=== PATIENT | male | born 1950 | race Caucasian/White ===

== ENCOUNTER 2019-08-04 16:18 | Inpatient (IN) | payer MEDICARE, OTHER ==
[2019-08-04] MEDS ORDERED: Ondansetron PF 4 MG/2 ML Vial IVP PRN (19:41)
[2019-08-04] MEDS ORDERED: Ondansetron ODT 4 MG TAB SL PRN (19:41)
[2019-08-04] MEDS ORDERED: Sodium Chloride 0.9% 1,000 ML IV SCH (19:41)
[2019-08-04] MEDS ORDERED: Acetaminophen 325 MG TAB PO PRN (20:19)
[2019-08-04 20:25] VITALS: BMI 14.1
--- NOTE | 2019-08-04 20:37 | PDOC.FPRHP ---
- History of Present Illness Chief Complaint: [facility]sis at [facility] History of Present Illness: PCP: Ashwin Amadeo Joyce is a 69 year old M with a PMH of Dementia, GERD, CKD who was transferred to [facility] ED from [place] ED after episode of hemoptysis in the [facility]. Pt is a poor historian. History provided by [facility] staff and ERMD. [facility] staff states that patient was found in his room with dark red blood on his sheet and he was spitting up clotted blood over the course of about an hour. Vitals were stable at the intermediate and he was only complaining of epigastric pain. He had not been having any other symptoms of fever, shortness of breath, n/v, diarrhea, dysuria, chest pain. Nursing staff states he has occasional cough at baseline and he has not had any increased cough of late. Denies any cased of COVID at [facility] and patient has had no exposures or travel. At the [place] ED, patient had CT abdomen that showed stable R hydronephrosis and hydroureter, esophageal wall thickening and stool retention in rectum and colon with fat stranding. CT chest showed small pleural effusions with adjacent atelectasis vs infiltrate. CXR showed bibasilar linear parenchymal changes suggestive of pneumonia vs pneumonitis. In the [place] ED, he was given Cefepime, Protonix, Zofran and 1 L NS. COVID test was performed at [place] [facility] due to pt living in [facility] and concern for pneumonia. ED Course: In [facility] ED, he had no episodes of bleeding. He was given Levaquin IV. - Allergies/Adverse Reactions Allergies Allergy/AdvReac Type Severity Reaction Status Date / Time aspirin Allergy Verified 08/04/19 20:26 cortisone Allergy Verified 08/04/19 20:26 hydrochlorothiazide Allergy Verified 08/04/19 20:26 reserpine Allergy Verified 08/04/19 20:26 - Home Medications Medication Instructions Recorded Confirmed Type Acetaminophen [Acetaminophen Extra 500 - 1,000 mg PO Q4HR PRN 11/04/13 08/04/19 History Strength] Benztropine Mesylate [Cogentin] 0.5 mg PO BID 11/04/13 08/04/19 History Divalproex Sodium [Depakote ER] 500 mg PO HS 11/04/13 08/04/19 History Docusate [Colace] 100 mg PO DAILY PRN 11/04/13 08/04/19 History Ferrous Sulfate 325 mg PO DAILY 11/04/13 08/04/19 History Loperamide HCl [Loperamide] 2 mg PO PRN PRN 11/04/13 08/04/19 History Mag Hydrox/Al Hydrox/Simeth 30 ml PO Q4HR PRN 11/04/13 08/04/19 History [Maalox Plus] Magnesium Hydroxide [Milk Of 30 ml PO Q4HR PRN 11/04/13 08/04/19 History Magnesium] Calcium Citrate/Vitamin D3 1 tablet PO DAILY 01/05/15 08/04/19 History [Calcitrate + Vitamin D Caplet] Famotidine 20 mg PO HS 02/17/15 08/04/19 History Lorazepam [Ativan] 1 mg PO BID 02/17/15 08/04/19 History Polyethylene Glycol 3350 [Miralax] 17 gm PO DAILY PRN 08/04/19 08/04/19 History hydrALAZINE [Apresoline] 25 mg PO BID 08/04/19 08/04/19 History - History PMHx: GERD, hx of frequent UTIs, CKD, HTN, Anemia, Dementia, Schizoaffective disorder PSHx: Right shoulder surgery FHx: unknown Social: lives at [facility], does not smoke, drink alcohol or do drugs - Review of Systems ROS unobtainable: due to mental status (ROS provided by nursing staff) General: denies: fever/chills ENT: denies: nasal congestion Respiratory: reports: cough. denies: shortness of breath Cardiovascular: denies: chest pain Gastrointestinal: reports: abdominal pain. denies: nausea, vomiting, diarrhea Skin: denies: rashes - Vital signs BP: 130/86 HR: 95 RR: 18 Tmax: 99.4 Pox: 94% on RA Wt: 40 kg - Physical Exam Constitutional: NAD, awake, alert and oriented HEENT: normocephalic and atraumatic, PERRLA, EOMI, MMM Neck: supple, no LAD, no JVD Heart: RRR, normal S1/S2, no murmurs/rubs/gallops Lungs: CTAB, no respiratory distress, no rales/rhonchi -Lungs: decreased air movement at bases Abdomen: soft, non-tender -Abdomen: hypoactive BSs Musculoskeletal: normal structure, normal tone Neurological: no focal deficit Skin: no rash/lesions, capillary refill <2 seconds Psychiatric: other (A&O X1, poor memory) FMR H&P: Results - Labs Result Diagrams: 08/05/19 12:05 08/05/19 12:05 - EKG Interpretation EKG: From [place] ED, showed left ant fascicular block and q waves in V4, V5, V6 FMR H&P: A/P - Problem List (1) Hemoptysis Current Visit: Yes Status: Acute Code(s): R04.2 - HEMOPTYSIS (2) Pneumonia Current Visit: Yes Status: Acute Code(s): J18.9 - PNEUMONIA, UNSPECIFIED ORGANISM (3) UTI (urinary tract infection) Current Visit: Yes Status: Acute (4) JONO (acute kidney injury) Current Visit: Yes Status: Acute Code(s): N17.9 - ACUTE KIDNEY FAILURE, UNSPECIFIED (5) Hyperkalemia Current Visit: Yes Status: Acute Code(s): E87.5 - HYPERKALEMIA (6) CKD (chronic kidney disease), stage IV Current Visit: No Status: Chronic Code(s): N18.4 - CHRONIC KIDNEY DISEASE, STAGE 4 (SEVERE) (7) Hydronephrosis, right Current Visit: No Status: Chronic Code(s): N13.30 - UNSPECIFIED HYDRONEPHROSIS - Plan Amadeo Joyce 69 year old M with PMH of GERD, CKD, freq UTIs, resident of [facility] 1) Hemoptysis - history is unclear if he was coughing up blood vs throwing/spitting up blood - atelectasis vs infiltrate seen on CT chest - CT abd showed esophageal wall thickening and stool retention with fat stranding - Hg normal, improved from previous - CTA not performed due to JONO on CKD - ordered V/Q scan - COVID test pending due to pneumonia and resident of [facility] - unclear if bleed is GI vs pulm, will initiate anticoagulation if V/Q scan is suggestive of PE - holding anticoagulation until that time 2) Pneumonia - stable from respiratory standpoint, no tachypnea or hypoxia - continue levaquin - s/p cefepime and levaquin from EDs 3) JONO on CKD - baseline Cr in low 2s - Cr of 3.78 today - checking Ur Na and Cr to calc a FENa - s/p 1 L NS - continue LR @ 100 ml/hr - stable hydronephrosis and hydroureter on CT abd 4) Hyperkalemia-mild - K 5.3 - no EKG changes - will give IVFs and repeat 5) UTI - UA showed +nitrite, Large LE, and 1+ olivia - hx of freq UTIs and neurogenic bladder - Urine cx collected on admission - continue levaquin 6) Dementia - at baseline - reorient as needed 7) Hydronephrosis/Hydroureter - stable, unchanged from previous - monitor kidney function and urine output CODE STATUS: DNAR, OOH DNR at NH, pt A&OX1 PCP: Ashwin Addendum - Attending - Attending Attestation Date/Time: 08/05/192006 I personally evaluated the patient and discussed the management with Dr. Apodaca on 08/03. I agree with the History, Examination, Assessment and Plan documented above with any addition or exceptions noted below. Unable to complete ROS or PMH other than what was given to us and on chart. He is fixated on getting a Dr. Judge and has tangential or nonsensical replies to questions. On exam he is cachectic appearing with yellow vomitus on his blanket. Otherwise unremarkable exam.
[2019-08-04] MEDS ORDERED: Cefepime 2 GM in Sodium Chloride 0.9% 100 ML IVPB SCH (21:00)
[2019-08-04] MEDS: Senokot S 8.6-50 MG TAB PO SCH ×2 (21:51→22:55)
[2019-08-04] MEDS: Polyethylene Glycol 3350 17 GM Packet PO SCH ×2 (21:51→22:54)
[2019-08-04] MEDS: Lactated Ringer's 1,000 ML IV SCH (21:51)
[2019-08-04 23:27] LABS: Legionella Urinary Ag Negative (Negative)
[2019-08-04 23:28] LABS: Strep pneumo Urine Ag NEGATIVE (NEGATIVE)
[2019-08-04 23:44] LABS: Creatinine, Urine 50.3 mg/dL (63-166)
[2019-08-05] MEDS: Lactated Ringer's 1,000 ML IV SCH ×3 (06:06→23:38)
[2019-08-05 06:39] LABS: #Lymphocytes 0.5 thou/uL (1.20-3.40); #Monocytes 0.9 thou/uL (0.11-0.59); #Neutrophils 4.7 thou/uL (1.40-6.50); %Basophils 0.3 % (0.0-1.0); %Eosinophils 0.4 % (0.0-10.0); %Lymphocytes 8.2 % (21.0-51.0); %Monocytes 14.6 % (0.0-10.0); %Neutrophils 76.6 % (42.0-75.0); Hemoglobin 10.8 g/dL (14.0-18.0); Mean Corpuscular HGB CONC 33.2 g/dL (32.0-36.0); Mean Corpuscular Hemoglobin 32.9 pg (27.0-31.0); Mean Corpuscular Volume 99.1 fL (78.0-98.0); Mean Platelet Volume 7.7 fL (7.4-10.4); Platelet Count 141 thou/uL (130-400); RBC Distribution Width 13.1 % (11.5-14.5); Red Blood Cell (RBC) Count 3.28 mill/uL (4.70-6.10); White Blood Cell (WBC) Count 6.2 thou/uL (4.8-10.8)
--- NOTE | 2019-08-05 06:45 | PDOC.FM ---
Addendum entered and electronically signed by Elizabeth Guo MD 08/05/19 09:34 : For sterocoral colitis - patient given bowel regimen and has had BMs. Will disimpact patient later to make sure there is no stool ball present. Original Note: - Subjective Subjective: One episode of coffee ground emesis overnight estimated 350ml per nursing. Patient with hx of dementia and difficult to get any history. Patient resting comfortably in bed on exam this AM. Patient denies any emesis. States he had a BM without blood in stool. Patient denies any nausea, fever, chills, cough, abdominal pain, but gain unsure how accurate this hx is due to patient mental status. - Objective MAR Reviewed: Yes Vital Signs & Weight: Vital Signs (12 hours) Temp Pulse Resp BP Pulse Ox 08/05/19 04:00 98.8 F 89 16 111/70 94 L 08/05/19 00:06 98.3 F 93 18 122/80 93 L 08/04/19 20:00 94 L 08/04/19 19:41 97.8 F 92 18 106/70 94 L Weight Weight 40.823 kg I&O: 08/03/19 08/04/19 08/05/19 06:59 06:59 06:59 Intake Total 1300 Output Total 900 Balance 400 Result Diagrams: 08/05/19 06:26 08/05/19 06:26 Phys Exam - Physical Examination Constitutional: NAD cachectic HEENT: moist MMs, sclera anicteric dentition poor Neck: supple, full ROM Respiratory: clear to auscultation bilateral Cardiovascular: RRR Gastrointestinal: soft, non-tender, no distention, positive bowel sounds Musculoskeletal: no edema Neurological: non-focal, moves all 4 limbs Deviation from normal: aoxo1 Skin: no rash, normal turgor, cap refill <2 seconds Dx/Plan (1) JONO (acute kidney injury) Code(s): N17.9 - ACUTE KIDNEY FAILURE, UNSPECIFIED Status: Acute (2) Hemoptysis Code(s): R04.2 - HEMOPTYSIS Status: Acute (3) Hyperkalemia Code(s): E87.5 - HYPERKALEMIA Status: Acute (4) Pneumonia Code(s): J18.9 - PNEUMONIA, UNSPECIFIED ORGANISM Status: Acute (5) UTI (urinary tract infection) Status: Acute (6) CKD (chronic kidney disease), stage IV Code(s): N18.4 - CHRONIC KIDNEY DISEASE, STAGE 4 (SEVERE) Status: Chronic (7) Schizophrenia Code(s): F20.9 - SCHIZOPHRENIA, UNSPECIFIED Status: Chronic Qualifiers: Schizophrenia type: unspecified Qualified Code(s): F20.9 - Schizophrenia, unspecified - Plan Plan: Amadeo Joyce 69 year old M with PMH of GERD, CKD, freq UTIs, resident of [facility] Hemoptysis 2/2 UGIB History is unclear if he was coughing up blood vs throwing/spitting up blood. Atelectasis vs infiltrate seen on CT chest. CT abd showed esophageal wall thickening and stool retention with fat stranding suggestive of sterocolitis. - Unsure etiology at this point; possibly due to GI vs pulm and due to Hgb drop more likely to be GI in origin. FOBT positive. Will hold off on anticoaguation at this time. - Hgb dropped from 14.5 -> 10.8, Will consult GI for this. Likely unable to do any scopes until COVID results. - Protonix BID Pneumonia Stable from respiratory standpoint, no tachypnea or hypoxia. s/p cefepime and levaquin from ED. - Continue levaquin JONO on CKD Stage 4 Baseline Cr in low 2s. s/p 1L NS. Stable hydronephrosis and hydroureter on CT abd - Cr of 3.78 on admission -> 3.3 - FENa suggesting intrinsic causes; can consider nephro consult if GFR not improving to baseline - mIVF Hyperkalemia-mild K 5.3 -> 5.5 - No EKG changes - Can repeat labs later today to see if decreasing with BMs/fluid. Can consider albuterol/insulin if needed. UTI UA showed +nitrite, Large LE, and 1+ olivia. Hx of freq UTIs and neurogenic bladder. - Urine cx collected on admission - Continue levaquin COVID r/o - COVID test pending due to PNA on atelectasis vs infiltrate. D-dimer elevated, lymphopenia. No new onset cough, fever. Resident at [facility]. Dementia At baseline - Reorient as needed Hydronephrosis/Hydroureter Stable, unchanged from previous - Monitor kidney function and urine output CODE STATUS: DNAR, OOH DNR at [facility], pt A&OX1 at baseline VTE: SCDs, protonix Diet: cl liquid PCP: Ashwin Case discussed with Dr. Roth Addendum - Attending - Attending Attestation Date/Time: 08/05/19 9194 I personally evaluated the patient and discussed the management with Dr. Guo. I agree with the History, Examination, Assessment and Plan documented above with any addition or exceptions noted below. Patient here with what sounds like hematemesis. FOBT positive. His CT shows possible stercoral proctitis, but he has had a few BM since admission. Needs rectal exam. GI consulted. COVID pending, though I have low suspicion for this diagnosis. Renal function somewhat improved. Trend H/H and transfuse as needed.
[2019-08-05 06:59] LABS: Anion Gap 11 mmol/L (10-20); BUN (Urea Nitrogen) 63 mg/dL (8.4-25.7); Calc. Creatinine Clearance 12 mL/min (70-130); Calcium 8.2 mg/dL (7.8-10.44); Carbon Dioxide 24 mmol/L (23-31); Chloride 105 mmol/L (98-107); Estimated GFR-MDRD 19; Glucose 93 mg/dL (80-115); Potassium 5.5 mmol/L (3.5-5.1); Sodium 134 mmol/L (136-145)
[2019-08-05] MEDS ORDERED: Ferrous Sulfate 325 MG TAB PO SCH (09:00)
[2019-08-05] MEDS ORDERED: Polyethylene Glycol 3350 17 GM Packet PO SCH ×2 (09:00→19:00)
[2019-08-05] MEDS: Pantoprazole 40 MG VIAL IVP SCH ×2 (09:08→20:48)
[2019-08-05] MEDS: Benztropine 1 MG TAB PO SCH ×2 (09:08→20:45)
[2019-08-05] MEDS: Senokot S 8.6-50 MG TAB PO SCH ×2 (09:09→20:47)
[2019-08-05] MEDS: Calcium Carbonate 600 MG + Vit D TAB PO SCH (09:09)
[2019-08-05] MEDS: hydrALAZINE 25 MG TAB PO SCH ×2 (09:58→20:47)
[2019-08-05 12:16] LABS: #Lymphocytes 0.8 thou/uL (1.20-3.40); #Monocytes 0.8 thou/uL (0.11-0.59); #Neutrophils 4.4 thou/uL (1.40-6.50); %Basophils 0.5 % (0.0-1.0); %Eosinophils 0.4 % (0.0-10.0); %Monocytes 13.5 % (0.0-10.0); %Neutrophils 72.7 % (42.0-75.0); Hemoglobin 10.8 g/dL (14.0-18.0); Mean Corpuscular HGB CONC 32.6 g/dL (32.0-36.0); Mean Corpuscular Hemoglobin 32.4 pg (27.0-31.0); Mean Corpuscular Volume 99.5 fL (78.0-98.0); Mean Platelet Volume 7.3 fL (7.4-10.4); Platelet Count 131 thou/uL (130-400); Red Blood Cell (RBC) Count 3.34 mill/uL (4.70-6.10)
[2019-08-05 12:35] LABS: Anion Gap 12 mmol/L (10-20); BUN (Urea Nitrogen) 59 mg/dL (8.4-25.7); Calc. Creatinine Clearance 12 mL/min (70-130); Calcium 8.2 mg/dL (7.8-10.44); Carbon Dioxide 23 mmol/L (23-31); Chloride 103 mmol/L (98-107); Estimated GFR-MDRD 19; Glucose 100 mg/dL (80-115); Potassium 5.3 mmol/L (3.5-5.1); Sodium 133 mmol/L (136-145)
[2019-08-05] MEDS ORDERED: Fleet Enema 133 ML BOT PR SCH (15:30)
[2019-08-05] MEDS ORDERED: Prevnar 13-Val Conj/PF 0.5 ML SYRINGE IM ONE (21:00)
[2019-08-05] MEDS ORDERED: Famotidine 20 MG TAB PO SCH (21:00)
--- NOTE | 2019-08-05 21:23 | CON ---
DATE OF CONSULTATION: 08/05/2019 REASON FOR CONSULTATION: Possible hematemesis. CONSULTING PROVIDER: Elizabeth Guo MD HISTORY OF PRESENT ILLNESS: The patient is a 69-year-old male with past medical history of GERD, chronic kidney disease, recurrent urinary tract infections, hypertension, anemia, schizoaffective disorder and [id number] dementia, presenting with complaints of hemoptysis/hematemesis prior to admission. On interviewing the patient, he was a very poor historian and was not necessarily oriented to his surroundings and was very tangential in thought processes, so the majority of the information obtained was through chart review. Per chart review, the patient is currently a resident at a retirement in [place] and was discovered by a staff there to have dark red blood on his sheet that was deemed to be from spitting of blood over the course of an hour. At that time, he was complaining of midepigastric abdominal pain, but denied any other symptoms associated with this. He was subsequently transferred to the [facility] and while in the [facility], the patient was evaluated with routine labs as well as CT abdomen and pelvis, but placed on COVID-19 precautions given the living status of the patient and possible hemoptysis. With the current clinical status, he was subsequently transferred to [facility] in [place], [place] for further evaluation. Shortly after admission here at [facility], per nursing staff, he was noted to have hematemesis of coffee-ground looking material after the ingestion of just a small amount of water with approximately 250-350 mL observed. However, since that time, he has not had any further episodes of hematemesis nor has he had any melenic stools or bright red blood per rectum. Per nursing staff, he does not complain of any abdominal pain for the time being and has not required any additional medications for nausea. Of note, while in the [facility], he was given cefepime, Protonix, Zofran, and resuscitated with 1 L normal saline. The COVID test was performed in their institution with results still pending at this time. REVIEW OF SYSTEMS: A 10-category review of systems could not be obtained due to the patient's altered mental status/baseline dementia. PAST MEDICAL HISTORY: As per HPI. PAST SURGICAL HISTORY: Right shoulder surgery. FAMILY HISTORY: Unknown. SOCIAL HISTORY: No mention of tobacco, alcohol, or illicit drug use while residing at the retirement. OUTPATIENT MEDICATIONS: Reviewed. ALLERGIES: ASPIRIN, CORTISONE, HYDROCHLOROTHIAZIDE, AND RESERPINE. PHYSICAL EXAMINATION: VITAL SIGNS: Temperature 98, pulse 77, blood pressure 114/71, respiratory rate 16, saturating 94% on room air. GENERAL: The patient was lying in bed, in no acute distress. Alert and oriented x2. HEENT: Normocephalic, atraumatic. No scleral icterus noted. NECK: Supple. No JVD. CARDIOVASCULAR: Regular rate and rhythm with no discernible murmurs, gallops, or rubs. RESPIRATORY: Clear to auscultation bilaterally with no discernible wheezes or rales, although the patient did exhibit poor inspiratory effort. ABDOMEN: Normoactive bowel sounds. Soft, nontender, and nondistended. EXTREMITIES: No cyanosis, clubbing, or edema although limbs were cachectic in appearance. LABORATORY DATA: CBC with a white blood cell count of 6.2, hemoglobin 10.8, hematocrit 32.5, platelets 141. Chemistry with a sodium of 134, potassium 5.5, chloride 105, CO2 of 24, BUN 63, creatinine 3.2, glucose 93. IMAGING DATA: CT of the abdomen and pelvis was obtained in the [facility] on August 04, 2019, which showed a conspicuous amount of gastric fluid as well as distention of the stomach itself in addition to possible wall thickening of the distal esophagus. There was also fluid density within the esophagus consistent with acid reflux. Right hydronephrosis was seen in addition to marked fecal retention and the possibility of stercoral colitis. CT of the chest was obtained on August 04, 2019, and showed small bilateral pleural effusions with atelectasis and possible infiltrates, but no presence of pneumothoraces. Generalized DJD of the spine . ASSESSMENT AND PLAN: The patient is a 69-year-old male with past medical history of gastroesophageal reflux disease, chronic kidney disease, recurrent urinary tract infections, hypertension, anemia, schizoaffective disorder, and baseline dementia presenting with anemia and hematemesis. Hematemesis: The patient was initially admitted to the hospital with questionable hemoptysis versus hematemesis given the fact that he had blood on the sheets in the retirement. However, last night per nursing staff, the patient was directly observed as having with a considered "coffee-grounds emesis" with approximately 250-350 mL vomited. He has not had any further episodes of vomiting since then nor has he had any melenic type stools that might indicate a continued gastrointestinal bleed. Upon review of the patient's labs, he does have a slight decrease in his H and H from baseline, again consistent with possible bleeding source and he does have an elevated BUN to creatinine ratio, but it is difficult to discern whether or not this is due to his chronic kidney disease or it is due to an upper gastrointestinal bleed. However, with the concern for hemoptysis in a retirement patient, he is currently being ruled out for COVID-19 virus and needs to be ruled out for this preferably prior to any endoscopic management. However, if the patient does continue to have decrease in his H and H or overt gross bleeding/hematemesis, then more emergent upper endoscopy could be considered at that time. RECOMMENDATIONS: 1. We would continue to trend his H and H and transfuse as necessary to maintain an H and H of 7/21. 2. Continue to monitor clinically for signs of active GI bleeding. 3. We will continue the patient on pantoprazole 40 mg IV b.i.d. in light of possible active GI bleed. 4. We would hold any iron supplementation for the time being given that it can be a chemical irritant to the lining of the stomach and also generate what appears to be coffee-grounds emesis outside of actual blood loss. 5. Preferably, the patient would need to be ruled out for the presence of COVID-19 virus prior to endoscopic management. However, if the patient does exhibit gross bleeding, then emergent upper endoscopy should be considered. 6. We will hold any anticoagulation at least for the time being. 7. We would place the patient on standard acid reflux precautions, especially in light of gastric distention that could potentially contribute to increased acid reflux/esophagitis. As such, the patient should maintain a 30-degree upright posture to prevent further reflux of acid in the esophagus. 8. Pain control per primary team. Constipation/possible stercoral colitis: The patient is presenting with recent imaging showing the presence of marked fecal retention throughout the entire colon in addition to possible inflammatory changes within the distal colon concerning for stercoral proctitis. Given his outpatient medications and the propensity to cause constipation, this is a potential possibility. However, prior to endoscopic management or even surgical management for this condition, I would place the patient on an adequate bowel regimen including polyethylene glycol/MiraLax twice daily to facilitate having a bowel movement. RECOMMENDATIONS: 1. We would place the patient on MiraLAX twice daily to facilitate having a bowel movement. 2. Could consider manual fecal disimpaction in light of possible stercoral colitis. We will continue to follow. Please call with any questions. Job ID: [id number]
--- NOTE | 2019-08-06 07:26 | PDOC.FM ---
- Subjective Subjective: Overnight, patient had multiple BMs. No blood in stool. Patient with no more bloody emesis per nursing. Patient resting comfortably in bed. No complaints or concerns per patient. - Objective MAR Reviewed: Yes Vital Signs & Weight: Vital Signs (12 hours) Temp Pulse Resp BP Pulse Ox 08/05/19 20:47 77 08/05/19 20:00 98.7 F 76 18 122/79 93 L Weight Admit Weight 40.823 kg Weight 40.823 kg I&O: 08/05/19 08/06/19 08/07/19 06:59 06:59 06:59 Intake Total 1300 1800 Output Total 900 1850 Balance 400 -50 Result Diagrams: 08/06/19 07:57 08/06/19 07:57 Phys Exam - Physical Examination Constitutional: NAD cachectic HEENT: moist MMs, sclera anicteric Neck: supple, full ROM Respiratory: clear to auscultation bilateral Cardiovascular: RRR Gastrointestinal: soft, non-tender, no distention, positive bowel sounds Musculoskeletal: no edema Neurological: non-focal Deviation from normal: axox1 Skin: no rash, normal turgor, cap refill <2 seconds Dx/Plan (1) JONO (acute kidney injury) Code(s): N17.9 - ACUTE KIDNEY FAILURE, UNSPECIFIED Status: Acute (2) Hemoptysis Code(s): R04.2 - HEMOPTYSIS Status: Acute (3) Hyperkalemia Code(s): E87.5 - HYPERKALEMIA Status: Acute (4) Pneumonia Code(s): J18.9 - PNEUMONIA, UNSPECIFIED ORGANISM Status: Acute (5) UTI (urinary tract infection) Status: Acute (6) CKD (chronic kidney disease), stage IV Code(s): N18.4 - CHRONIC KIDNEY DISEASE, STAGE 4 (SEVERE) Status: Chronic (7) Schizophrenia Code(s): F20.9 - SCHIZOPHRENIA, UNSPECIFIED Status: Chronic Qualifiers: Schizophrenia type: unspecified Qualified Code(s): F20.9 - Schizophrenia, unspecified - Plan Plan: Hematemesis 2/2 UGIB History of vomiting 350ml of bloody emesis on presentation. Atelectasis vs infiltrate seen on CT chest. CT abd showed esophageal wall thickening and stool retention with fat stranding suggestive of stercoral colitis. - Hgb dropped from 14.5 -> 10.8, GI consulted, appreciate recommendations. Likely unable to do any scopes until COVID results, unless emergent. Will continue to trend H/H. Hold any iron supplementation. Place on standard acid reflux precautions. - Protonix BID Stercoral colitis CT abd showed esophageal wall thickening and stool retention with fat stranding suggesting this. - Patient given bowel regimen, enema, and manually disimpacted x 2. Will continue bowel regimen of miralax BID. UTI UA showed +nitrite, Large LE, and 1+ olivia. Hx of freq UTIs and neurogenic bladder. - Urine cx: MRSA, will start vanc. Can likely transition to doxy upon discharge. CAP Stable from respiratory standpoint, no tachypnea or hypoxia. s/p cefepime and levaquin from ED. - Continue levaquin, vancomycin. Pharmacy to dose vanc. JONO on CKD Stage 4, improving Baseline Cr in low 2s. s/p 1L NS. Stable hydronephrosis and hydroureter on CT abd - Cr of 3.78 on admission -> 3.3 -> 2.76 - FENa suggesting intrinsic causes; Cr improving back to baseline. - PO hydration Hyperkalemia, resolved K 5.3 -> 5.5 -> 5.1. No EKG changes. - Will continue to monitor COVID r/o - COVID test pending due to PNA on atelectasis vs infiltrate. D-dimer elevated, lymphopenia. No new onset cough, fever. Resident at a [facility]. Dementia At baseline - Reorient as needed Hydronephrosis/Hydroureter Stable, unchanged from previous - Monitor kidney function and urine output CODE STATUS: DNAR, OOH DNR at NH, pt A&OX1 at baseline VTE: SCDs, protonix Diet: cl liquid PCP: Ashwin Case discussed with Dr. Roth Addendum - Attending - Attending Attestation Date/Time: 08/06/19 1038 I personally evaluated the patient and discussed the management with Dr. Guo. I agree with the History, Examination, Assessment and Plan documented above with any addition or exceptions noted below. Patient stable. Trend H/H. GI on board for suspected GI bleed. He is s/p manual disimpaction x2 with enema for stercoral colitis on CT. He is having continued BM, non bloody. COVID pending but low suspicion for that.
[2019-08-06] MEDS ORDERED: Vancomycin HCl 0.75 GM in Sodium Chloride 0.9% 250 ML 300 ML IVPB SCH (07:30)
[2019-08-06] MEDS ORDERED: Vancomycin HCl 500 MG in Sodium Chloride 0.9% 100 ML IVPB SCH (07:45)
[2019-08-06] MEDS ORDERED: Vancomycin Sliding Scale 1 EACH FS SCH (07:45)
[2019-08-06] MEDS ORDERED: Vancomycin HCl 250 MG in Sodium Chloride 0.9% 100 ML IVPB SCH (07:45)
[2019-08-06] MEDS ORDERED: Vancomycin 1 GM in Premix Bag 1 BAG IVPB SCH ×2 (07:45→08:00)
[2019-08-06] MEDS ORDERED: HOLD VANCOMYCIN FOR LEVEL >20 FS SCH (07:45)
[2019-08-06] MEDS ORDERED: Vancomycin HCl 750 MG in Sodium Chloride 0.9% 250 ML 250 ML IVPB SCH (07:45)
[2019-08-06 08:40] LABS: Anion Gap 10 mmol/L (10-20); BUN (Urea Nitrogen) 45 mg/dL (8.4-25.7); Calc. Creatinine Clearance 15 mL/min (70-130); Calcium 8.3 mg/dL (7.8-10.44); Carbon Dioxide 27 mmol/L (23-31); Chloride 100 mmol/L (98-107); Estimated GFR-MDRD 23; Glucose 91 mg/dL (80-115); Potassium 5.1 mmol/L (3.5-5.1); Sodium 132 mmol/L (136-145)
[2019-08-06] MEDS: Pantoprazole 40 MG VIAL IVP SCH ×2 (08:52→21:28)
[2019-08-06] MEDS: Senokot S 8.6-50 MG TAB PO SCH ×2 (08:52→21:28)
[2019-08-06] MEDS: Benztropine 1 MG TAB PO SCH ×2 (08:53→21:29)
[2019-08-06] MEDS: Calcium Carbonate 600 MG + Vit D TAB PO SCH (08:54)
[2019-08-06] MEDS: Polyethylene Glycol 3350 17 GM Packet PO SCH ×2 (08:54→21:28)
[2019-08-06 09:16] LABS: #Eosinphils 0.1 thou/uL (0.0-0.7); #Lymphocytes 1.1 thou/uL (1.20-3.40); #Monocytes 0.6 thou/uL (0.11-0.59); #Neutrophils 2.3 thou/uL (1.40-6.50); %Basophils 0.5 % (0.0-1.0); %Lymphocytes 26.5 % (21.0-51.0); %Monocytes 14.6 % (0.0-10.0); %Neutrophils 56.3 % (42.0-75.0); MDiff Complete? YES; Mean Corpuscular HGB CONC 32.9 g/dL (32.0-36.0); Mean Corpuscular Hemoglobin 32.5 pg (27.0-31.0); Mean Corpuscular Volume 98.8 fL (78.0-98.0); Mean Platelet Volume 7.8 fL (7.4-10.4); Ovalocytes SLIGHT = 2-5 cells (100X) (0-1/hpf); Platelet Count 111 thou/uL (130-400); Platelet Morphology Comment Appears Decreased; RBC Distribution Width 12.8 % (11.5-14.5); Red Blood Cell (RBC) Count 3.09 mill/uL (4.70-6.10); White Blood Cell (WBC) Count 4.1 thou/uL (4.8-10.8)
[2019-08-06] MEDS: hydrALAZINE 25 MG TAB PO SCH ×2 (10:28→21:29)
--- NOTE | 2019-08-06 13:23 | PRG ---
DATE OF SERVICE: 08/06/2019 REASON FOR CONSULTATION: Possible hematemesis, anemia. SUBJECTIVE: Per nursing staff, the patient exhibited no acute events or problems overnight. He has not had any further episodes of hematemesis. Per conversation with the Family Medicine residents, the patient also underwent manual disimpaction yesterday with a large amount of stool obtained. There was no mention of any hematochezia or melena seen during that procedure. Otherwise, the patient continues to have moderate dementia and could not contribute any other meaningful information to nursing staff. OBJECTIVE: VITAL SIGNS: Temperature 98.6, pulse 77, blood pressure 100/63, respiratory rate 18, and saturating 94% on room air. Further physical examination was not performed due to the patient's rule out for COVID-19 virus. LABORATORY DATA: CBC with a white blood cell count of 4.1, hemoglobin 10, hematocrit 30.5, platelets 111. Chemistry with sodium of 132, potassium 5.1, chloride 100, CO2 of 27, BUN 45, creatinine 2.76, glucose 91. IMAGING DATA: No current GI imaging is available for review. ASSESSMENT AND PLAN: The patient is a 69-year-old male with past medical history of gastroesophageal reflux disease, chronic kidney disease, recurrent urinary tract infections, hypertension, anemia, schizoaffective disorder, and baseline moderate dementia, presenting with anemia and possible hematemesis. Possible hematemesis: The patient was initially admitted to the hospital with questionable hemoptysis versus hematemesis. However, per nursing staff shortly after admission, the patient exhibited hematemesis with what was considered coffee-ground emesis with approximately 250 mL to 350 mL vomited. Since that time, he has not had any further episodes of any sort of GI bleeding despite manual disimpaction for constipation yesterday. Per trending his laboratory values at this time, he has had a mild decrease in his H and H since admission but no further significant decreases from yesterday's values. At this time based on the CT scan, there is what appeared to be a large amount of fluid within the stomach and the distal esophagus concerning for possible gastric outlet obstruction, which could be secondary to peptic ulcer disease or other underlying process. However, given his current concern for the COVID-19 virus, this will need to be ruled out prior to any endoscopic management, especially since his H and H have stabilized making the necessity for emergent upper endoscopy less likely. At this time, I would proceed with ruling out the COVID-19 virus first and if negative, proceed with upper endoscopy for further management. RECOMMENDATIONS: 1. Would continue to trend his H and H and transfuse as necessary to maintain an H and H of 7/. 2. Continue to monitor clinically for signs of active GI bleeding. 3. Would continue the patient on pantoprazole 40 mg IV b.i.d. in light of possible active GI bleeding. 4. Continue to follow up on the COVID-19 virus screen. 5. Continue to hold any anticoagulation. 6. Would strictly adhere to standard acid reflux precautions, especially in light of probable acid reflux seen on imaging that could contribute to esophagitis and hematemesis. 7. Pain control per primary team. 8. We will continue to hold endoscopic management until COVID-19 virus status is down. 9. We will continue to follow. Please call with any questions. Job ID: [id number]
--- NOTE | 2019-08-07 06:40 | PDOC.FM ---
- Subjective Subjective: NAEO. Patient with no more bloody emesis. Continues to have BMs, non bloody. Patient resting comfortably in bed. Patient states that his abdomen feels tense in the midepigastrum area, but unable to totally discern due to patient mental status. No concerns per nursing. - Objective MAR Reviewed: Yes Vital Signs & Weight: Vital Signs (12 hours) Temp Pulse Resp BP Pulse Ox 08/07/19 05:13 98.3 F 70 18 103/67 95 08/06/19 23:39 98.8 F 70 16 110/70 95 08/06/19 19:37 99.2 F 75 18 96/57 L 98 08/06/19 19:35 98 Weight Admit Weight 40.823 kg Weight 40.823 kg I&O: 08/05/19 08/06/19 08/07/19 06:59 06:59 06:59 Intake Total 1300 1800 2020 Output Total 900 1850 3100 Balance Result Diagrams: 08/07/19 07:02 08/07/19 07:02 Phys Exam - Physical Examination Constitutional: NAD HEENT: moist MMs, sclera anicteric Neck: supple, full ROM Respiratory: clear to auscultation bilateral Cardiovascular: RRR Gastrointestinal: soft, non-tender, no distention, positive bowel sounds Musculoskeletal: no edema Neurological: non-focal, moves all 4 limbs Deviation from normal: axox1 Skin: no rash, normal turgor, cap refill <2 seconds Dx/Plan (1) JONO (acute kidney injury) Code(s): N17.9 - ACUTE KIDNEY FAILURE, UNSPECIFIED Status: Acute (2) Hemoptysis Code(s): R04.2 - HEMOPTYSIS Status: Acute (3) Hyperkalemia Code(s): E87.5 - HYPERKALEMIA Status: Acute (4) Pneumonia Code(s): J18.9 - PNEUMONIA, UNSPECIFIED ORGANISM Status: Acute (5) UTI (urinary tract infection) Status: Acute (6) CKD (chronic kidney disease), stage IV Code(s): N18.4 - CHRONIC KIDNEY DISEASE, STAGE 4 (SEVERE) Status: Chronic (7) Schizophrenia Code(s): F20.9 - SCHIZOPHRENIA, UNSPECIFIED Status: Chronic Qualifiers: Schizophrenia type: unspecified Qualified Code(s): F20.9 - Schizophrenia, unspecified - Plan Plan: Hematemesis 2/2 UGIB History of vomiting 350ml of bloody emesis on presentation. Atelectasis vs infiltrate seen on CT chest. CT abd showed esophageal wall thickening and stool retention with fat stranding suggestive of stercoral colitis. - Hgb dropped from 14.5 -> 10.8, GI consulted, appreciate recommendations. Likely unable to do any scopes until COVID results, unless emergent. Will continue to trend H/H. Hold any iron supplementation. Place on standard acid reflux precautions. - Protonix BID Stercoral colitis CT abd showed esophageal wall thickening and stool retention with fat stranding suggesting this. - Patient given bowel regimen, enema, and manually disimpacted x 2. Will continue bowel regimen of miralax BID. Patient having regular BMs that are non bloody. UTI UA showed +nitrite, Large LE, and 1+ olivia. Hx of freq UTIs and neurogenic bladder. - Urine cx: MRSA, will start vanc. Can likely transition to doxy upon discharge. CAP Stable from respiratory standpoint, no tachypnea or hypoxia. s/p cefepime and levaquin from ED. - Continue levaquin, vancomycin. Pharmacy to dose vanc. JONO on CKD Stage 4, improving Baseline Cr in low 2s. s/p 1L NS. Stable hydronephrosis and hydroureter on CT abd - Cr of 3.78 on admission -> 3.3 -> 2.76 -> 2.5 - FENa suggesting intrinsic causes; Cr improving back to baseline. - PO hydration Hyperkalemia, resolved K 5.3 -> 5.5 -> 5.1. No EKG changes. - Will continue to monitor COVID r/o - COVID test pending due to PNA on atelectasis vs infiltrate. D-dimer elevated, lymphopenia. No new onset cough, fever. Resident at a [place]. - Results pending Dementia At baseline - Reorient as needed Hydronephrosis/Hydroureter Stable, unchanged from previous - Monitor kidney function and urine output CODE STATUS: DNAR, OOH DNR at NH, pt A&OX1 at baseline VTE: SCDs, protonix Diet: cl liquid PCP: Ashwin Case discussed with Dr. Roth Addendum - Attending - Attending Attestation Date/Time: 08/07/19 1021 I personally evaluated the patient and discussed the management with Dr. Guo. I agree with the History, Examination, Assessment and Plan documented above with any addition or exceptions noted below. Patient stable. Awaiting negative COVID result so he can begin GI workup for hematemesis. His H/H are stable. Currently on CLD. Continues to have BM s/p his manual disimpaction for stercoral proctitis.
[2019-08-07 07:41] LABS: Anion Gap 12 mmol/L (10-20); BUN (Urea Nitrogen) 42 mg/dL (8.4-25.7); Calc. Creatinine Clearance 16 mL/min (70-130); Calcium 8.2 mg/dL (7.8-10.44); Carbon Dioxide 24 mmol/L (23-31); Chloride 100 mmol/L (98-107); Estimated GFR-MDRD 26; Glucose 90 mg/dL (80-115); Potassium 4.7 mmol/L (3.5-5.1); Sodium 131 mmol/L (136-145)
[2019-08-07 07:46] LABS: Mean Corpuscular HGB CONC 32.7 g/dL (32.0-36.0); Mean Corpuscular Hemoglobin 32.3 pg (27.0-31.0); Mean Corpuscular Volume 98.6 fL (78.0-98.0); RBC Distribution Width 12.8 % (11.5-14.5); Red Blood Cell (RBC) Count 3.42 mill/uL (4.70-6.10)
[2019-08-07] MEDS: hydrALAZINE 25 MG TAB PO SCH ×2 (08:00→20:37)
[2019-08-07 08:11] LABS: Burr Cells SLIGHT = 2-5 cells (100X) (0-1/hpf); Eosinophils 1 % (0-10); Lymphocytes 37 % (21-51); MDiff Complete? YES; Mean Platelet Volume 7.5 fL (7.4-10.4); Monocytes 10 % (0-10); Neutrophil 51 % (42-75); Platelet Count 108 thou/uL (130-400); Platelet Morphology Comment Appears Decreased; Reactive Lymphocytes 1 % (0-10)
[2019-08-07] MEDS: Calcium Carbonate 600 MG + Vit D TAB PO SCH (08:21)
[2019-08-07] MEDS: Benztropine 1 MG TAB PO SCH ×2 (08:21→20:37)
[2019-08-07] MEDS: Polyethylene Glycol 3350 17 GM Packet PO SCH ×2 (08:22→20:38)
[2019-08-07] MEDS: Pantoprazole 40 MG VIAL IVP SCH ×2 (08:22→20:38)
[2019-08-07] MEDS: Senokot S 8.6-50 MG TAB PO SCH ×2 (08:22→20:37)
--- NOTE | 2019-08-07 14:46 | PRG ---
DATE OF SERVICE: 08/07/2019 REASON FOR CONSULTATION: Possible hematemesis, anemia. SUBJECTIVE: Upon discussing the patient with nursing staff, the patient has not exhibited any evidence of GI bleeding within the last 48 hours including no evidence of hematemesis, melena, or hematochezia. He has had approximately 2-3 bowel movements within the last 24 hours, all of which were nonbloody. Otherwise, the patient continues to have [id number] dementia with no acute events or problems overnight per nursing staff. OBJECTIVE: VITAL SIGNS: Temperature 99.4, pulse 80, blood pressure 100/63, respiratory rate 18, saturating 94% on room air. Further physical examination was not performed due to the patient's rule-out for COVID-19 virus. LABORATORY DATA: CBC with a white blood cell count of 3, hemoglobin 11, hematocrit 33.7, platelets 108. Chemistry with a sodium of 131, potassium 4.7, chloride 100, CO2 of 24, BUN 42, creatinine 2.52, glucose 90. IMAGING DATA: No current GI imaging is available for review. ASSESSMENT AND PLAN: The patient is a 69-year-old male with past medical history of gastroesophageal reflux disease, chronic kidney disease, recurrent urinary tract infections, hypertension, anemia, schizoaffective disorder, and baseline moderate dementia, presenting with anemia and possible hematemesis. Possible hematemesis: The patient was initially admitted to the hospital with questionable hemoptysis versus hematemesis, but observed by nursing staff shortly after admission with what appeared to be the expression of 250-350 mL of coffee-ground emesis. However, since that time, he has had no further episodes of overt GI bleeding and per monitoring of his H and H, it is actually uptrending at this time. Based on the CT scan obtained on admission, there was a larger amount of fluid within the stomach that could be potentially concerning for a possible gastric outlet obstruction, but the patient has been able to tolerate a diet since he has been an inpatient with no significant of difficulty, making this a less likely possibility. At this time, I would continue to monitor the patient with ruling out of the COVID-19 virus first, and if negative, proceed with upper endoscopy for further evaluation. RECOMMENDATIONS: 1. Would continue to trend his H and H and transfuse as necessary to maintain an H and H of 7/. 2. Continue to monitor clinically for signs of active GI bleeding. 3. Continue PPI 40 mg IV b.i.d. 4. We will follow up on the COVID-19 virus screen. 5. Continue to hold anticoagulation. 6. We will continue strict anti-reflux precautions. 7. Pain control per primary team. 8. Hopefully, the COVID-19 virus status will come back tomorrow, but there is no emergent need for upper endoscopy at this time. We will continue to follow. Please call with any questions. Job ID: [id number]
[2019-08-08 07:23] LABS: Hemoglobin 11.6 g/dL (14.0-18.0); Mean Corpuscular HGB CONC 33.8 g/dL (32.0-36.0); Mean Corpuscular Hemoglobin 33.3 pg (27.0-31.0); Mean Corpuscular Volume 98.5 fL (78.0-98.0); Mean Platelet Volume 7.1 fL (7.4-10.4); Platelet Count 124 thou/uL (130-400); RBC Distribution Width 12.6 % (11.5-14.5); Red Blood Cell (RBC) Count 3.47 mill/uL (4.70-6.10); White Blood Cell (WBC) Count 5.8 thou/uL (4.8-10.8)
[2019-08-08 07:36] LABS: Vancomycin, Trough 7.8 ug/mL
[2019-08-08 07:48] LABS: Band 8 % (5-11); Lymphocytes 41 % (21-51); MDiff Complete? YES; Monocytes 8 % (0-10); Myelocyte 1 % (0-0); Neutrophil 39 % (42-75); Platelet Morphology Comment Appears Decreased; Polychromasia SLIGHT = 2-3 cells (100X) (0-2/hpf); Reactive Lymphocytes 2 % (0-10)
--- NOTE | 2019-08-08 08:02 | PDOC.FM ---
- Subjective Subjective: NAEO. Pt states he is very hungry and has not eaten all day. I explained multiple times we are waiting on a study. He denies Cough, SOB, Fever, chills, nausea, or vomiting. - Objective MAR Reviewed: Yes Vital Signs & Weight: Weight Admit Weight 40.823 kg Weight 40.823 kg I&O: 08/07/19 08/08/19 08/09/19 06:59 06:59 06:59 Intake Total 2020 570 Output Total 3100 850 Balance -1080 -280 Result Diagrams: 08/08/19 06:48 08/07/19 07:02 Phys Exam - Physical Examination Constitutional: NAD Dry mm, poor dentition Neck: no JVD Respiratory: no wheezing, clear to auscultation bilateral Cardiovascular: RRR 2/6 systolic murmur Gastrointestinal: soft, non-tender, positive bowel sounds Flat abdomen Musculoskeletal: no edema, pulses present Neurological: moves all 4 limbs Deviation from normal: AAO to person and place, not to time Skin: cap refill <2 seconds Dx/Plan (1) JONO (acute kidney injury) Code(s): N17.9 - ACUTE KIDNEY FAILURE, UNSPECIFIED Status: Acute (2) Hemoptysis Code(s): R04.2 - HEMOPTYSIS Status: Acute (3) Hyperkalemia Code(s): E87.5 - HYPERKALEMIA Status: Acute (4) Pneumonia Code(s): J18.9 - PNEUMONIA, UNSPECIFIED ORGANISM Status: Acute (5) UTI (urinary tract infection) Status: Acute (6) Cystitis Code(s): N30.90 - CYSTITIS, UNSPECIFIED WITHOUT HEMATURIA Status: Acute (7) Schizophrenia Code(s): F20.9 - SCHIZOPHRENIA, UNSPECIFIED Status: Chronic Qualifiers: Schizophrenia type: unspecified Qualified Code(s): F20.9 - Schizophrenia, unspecified - Plan Plan: This is a 69 yo male with a pmh of CKD, dementia, hydronephrosis Hematemesis 2/2 UGIB -Now that covid is negative, pt can likely have EGD today -Continue Protonix BID -Hgb down from admission, but stable at 11.6 -GI consulted, will appreciate their recommendations Stercoral Proctitis -S/P disimpaction, bowel regimen present and enemas given -Pt is now having regular BMs, 3 in the last 24 hours. UTI 2/2 MRSA -Currently on vancomycin, will switch to Doxycycline PO on discharge CAP -Stable, likely viral if anything, Levaquin discontinued JONO on CKD 4 -Improving, PO hydration and avoid nephrotoxic drugs including bactrim Hyperkalemia, resolved COVID-19 negative Dementia -At baseline Hydronephrosis/Hydroureter -Stable from previous study Addendum - Attending - Attending Attestation Date/Time: 08/08/19 5284 I personally evaluated the patient and discussed the management with Dr. Kinsey. I agree with the History, Examination, Assessment and Plan documented above with any addition or exceptions noted below. COVID negative. EGD today with GI awaiting further recs. UTI only sensitive to Doxy for PO. Continue vanc for now pending EGD results.
[2019-08-08] MEDS: Benztropine 1 MG TAB PO SCH ×2 (08:55→20:08)
[2019-08-08] MEDS: Pantoprazole 40 MG VIAL IVP SCH ×2 (08:56→20:08)
[2019-08-08] MEDS: Calcium Carbonate 600 MG + Vit D TAB PO SCH (08:56)
[2019-08-08] MEDS: hydrALAZINE 25 MG TAB PO SCH ×2 (08:56→20:08)
[2019-08-08] MEDS: Polyethylene Glycol 3350 17 GM Packet PO SCH ×2 (09:05→20:09)
[2019-08-08] MEDS: Senokot S 8.6-50 MG TAB PO SCH ×2 (09:06→20:07)
[2019-08-08] MEDS ORDERED: PROPOFOL 200 MG/20 ML VIAL ONE (10:57)
[2019-08-08] MEDS ORDERED: Lidocaine 1% PF 5 ML VIAL ONE (10:57)
--- NOTE | 2019-08-08 18:51 | OP ---
DATE OF PROCEDURE: 08/08/2019 PROCEDURE: Esophagogastroduodenoscopy with biopsy. INDICATION FOR PROCEDURE: Anemia, hematemesis versus hemoptysis. DESCRIPTION OF PROCEDURE: After the risks and benefits of the procedure were explained to the patient including risks of bleeding, infection, perforation, reactions to anesthesia, aspiration, and/or pain, informed consent was obtained. The patient was then taken to the endoscopy suite, where he was maneuvered into the left lateral decubitus position, followed by introduction of deep sedation via propofol and anesthesia support. Once adequate sedation was achieved, the standard gastroscope was introduced into the mouth with intubation of the esophagus, stomach, and the proximal small intestines with the findings listed below. The patient tolerated the procedure well with no immediate perioperative complications. Upon conclusion of the procedure, all equipment was removed from the patient and he was transferred to PACU in satisfactory condition. FINDINGS: Esophagus: Normal-appearing mucosa was seen in the proximal and mid esophagus; however, a large amount of retained white granular debris was seen throughout the distal esophagus consistent with either retained food versus recent ingestion of sucralfate. This white-appearing material did interfere with visualization of the esophageal mucosa somewhat, but I was able to visualize multiple erosions in the distal esophagus extending proximally in a non-circumferential manner for about 5 to 7 cm. There were no ulcerations associated with these erosions nor was there any evidence of mass lesions or active/recent bleeding. Multiple biopsies were taken from the distal esophagus for further evaluation of these erosions and white debris. Stomach: A large amount of white granular debris was seen throughout the entire stomach that was somewhat amenable to irrigation and suctioning, although it did limit visualization of the gastric mucosa somewhat. Of the mucosa visualized (approximately 80% to 90%), normal-appearing mucosa was seen in the gastric cardia, fundus, body, greater curvature, antrum, and incisura. There was no evidence of erosions, ulcerations, mass lesions, or active/recent bleeding. The diaphragmatic pinch was seen at 42 cm while the gastroesophageal junction was seen at 39 cm denoting a 3 cm hiatal hernia. Duodenum: Again, a moderate amount of whitish granular debris was seen throughout the entire duodenum limiting visualization; however, with aggressive irrigation and suctioning, adequate visualization of the mucosa was able to be achieved. Of the mucosa seen, normal-appearing mucosa was seen in both the duodenal bulb and second portion of the duodenum. There was no evidence of erosions, ulcerations, mass lesions, or active/recent bleeding. IMPRESSION: 1. A [id number] amount of retained white food material versus sucralfate was seen throughout the entire upper GI tract limiting visualization. 2. LA grade C reflux-mediated erosive esophagitis. 3. 3 cm hiatal hernia, most likely contributing to his esophagitis. 4. No etiology for the patient's recent hematemesis/hemoptysis was seen during this examination. RECOMMENDATIONS: 1. Would continue to trend his H and H and transfuse as necessary to maintain an H and H of 7/. 2. Continue to monitor clinically for signs of active GI bleeding. 3. Would continue the patient on pantoprazole, but would decrease to once daily in light of reflux esophagitis. 4. Would consider non-GI source of his vomiting blood (possible hemoptysis). 5. Would maintain the patient on strict anti-reflux precautions including having the patient maintain an upright posture for at least a couple of hours after he eats, maintaining an upright posture throughout most of the day to prevent reflux of gastric contents, avoidance of trigger foods, etc. We will sign off at this time. Please call with any questions. Job ID: [id number]
[2019-08-08] MEDS ORDERED: Sodium Chloride 0.9% (PF) 10 ML VIAL FS PRN (22:26)
--- NOTE | 2019-08-09 07:23 | PDOC.FM ---
- Subjective Subjective: Patient resting comfortably this AM. States he is ready to go home. Denies any complaints. Difficult to assess Hx & ROS, as patient just continues to repeatedly state he feels great and wants to go home. - Objective MAR Reviewed: Yes Vital Signs & Weight: Vital Signs (12 hours) Temp Pulse Resp BP Pulse Ox 08/09/19 03:43 98.8 F 83 18 121/78 96 08/09/19 01:10 98.9 F 86 18 117/70 96 08/08/19 20:02 99.8 F H 78 18 122/76 94 L 08/08/19 19:42 94 L Weight Admit Weight 40.823 kg Weight 40.823 kg I&O: 08/08/19 08/09/19 08/10/19 06:59 06:59 06:59 Intake Total 570 1940 Output Total 850 1925 Balance -280 15 Result Diagrams: 08/09/19 08:00 08/07/19 07:02 Phys Exam - Physical Examination Constitutional: NAD chronically ill appearing HEENT: moist MMs, sclera anicteric Neck: supple, full ROM Respiratory: no wheezing, clear to auscultation bilateral Cardiovascular: RRR, no significant murmur Gastrointestinal: soft, non-tender, positive bowel sounds Musculoskeletal: no edema, pulses present Neurological: normal sensation Psychiatric: normal affect Deviation from normal: alert, oriented to person and that facility is a hospital Skin: no rash, normal turgor Dx/Plan (1) JONO (acute kidney injury) Code(s): N17.9 - ACUTE KIDNEY FAILURE, UNSPECIFIED Status: Acute (2) Hemoptysis Code(s): R04.2 - HEMOPTYSIS Status: Acute (3) Pneumonia Code(s): J18.9 - PNEUMONIA, UNSPECIFIED ORGANISM Status: Acute Qualifiers: Pneumonia type: due to unspecified organism Laterality: unspecified laterality Lung location: unspecified part of lung Qualified Code(s): J18.9 - Pneumonia, unspecified organism (4) UTI (urinary tract infection) Status: Acute Qualifiers: Urinary tract infection type: acute cystitis Hematuria presence: without hematuria Qualified Code(s): N30.00 - Acute cystitis without hematuria (5) CKD (chronic kidney disease), stage IV Code(s): N18.4 - CHRONIC KIDNEY DISEASE, STAGE 4 (SEVERE) Status: Chronic - Plan Plan: This is a 69 yo male with a pmh of CKD, dementia, hydronephrosis #Hematemesis 2/2 UGIB -EGD on 08/07 showed esophageal reflux -GI recommends Protonix switched to once daily -Hgb down from admission, but stable at 11.6 on 08/07, repeat H/H this AM stable at 11.4/34.7 -GI consulted--Dr. Belle, appreciate recommendations #Stercoral Proctitis -S/P disimpaction, bowel regimen present and enemas given -Pt is now having regular BMs, 3 in the last 24 hours. #UTI 2/2 MRSA -Currently on vancomycin, will switch to Doxycycline PO on discharge #CAP -Stable, likely viral if anything, Levaquin discontinued #JONO on CKD 4 -Improving, PO hydration and avoid nephrotoxic drugs including bactrim #Hyperkalemia, resolved #COVID-19 negative #Dementia -At baseline #Hydronephrosis/Hydroureter -Stable from previous study Diet: CL VTE: SCDs Code status: DNR Dispo: Stable, GI has signed off today. Will switch ABX to Doxycyline to complete full course. Anticipate discharge later today back to [facility]. Addendum - Attending - Attending Attestation Date/Time: 08/09/19 7448 I personally evaluated the patient and discussed the management with Dr. Renee. I agree with the History, Examination, Assessment and Plan documented above with any addition or exceptions noted below. Switch to PO doxy for UTI for 10 total days. EGD path resulted as fungal infection. Will start on fluconazole 21 days. D/C to [facility] today.
[2019-08-09 08:35] LABS: Hemoglobin 11.4 g/dL (14.0-18.0); Mean Corpuscular HGB CONC 32.8 g/dL (32.0-36.0); Mean Corpuscular Volume 97.6 fL (78.0-98.0); Mean Platelet Volume 6.9 fL (7.4-10.4); Platelet Count 130 thou/uL (130-400); RBC Distribution Width 12.8 % (11.5-14.5); Red Blood Cell (RBC) Count 3.56 mill/uL (4.70-6.10); White Blood Cell (WBC) Count 7.2 thou/uL (4.8-10.8)
[2019-08-09] MEDS: Benztropine 1 MG TAB PO SCH (08:41)
[2019-08-09] MEDS: Calcium Carbonate 600 MG + Vit D TAB PO SCH (08:41)
[2019-08-09] MEDS: Senokot S 8.6-50 MG TAB PO SCH (08:42)
[2019-08-09] MEDS: Polyethylene Glycol 3350 17 GM Packet PO SCH (08:42)
[2019-08-09] MEDS: hydrALAZINE 25 MG TAB PO SCH (08:42)
[2019-08-09] MEDS ORDERED: Pantoprazole 40 MG VIAL IVP SCH (09:00)
[2019-08-09 09:02] LABS: Band 5 % (5-11); Lymphocytes 18 % (21-51); MDiff Complete? YES; Metamyelocyte 1 % (0-0); Monocytes 23 % (0-10); Myelocyte 2 % (0-0); Neutrophil 51 % (42-75); Platelet Morphology Comment Appears Adequate; RBC Morphology Normal
--- NOTE | 2019-08-09 11:32 | RAD ---
FRONTAL RADIOGRAPH CHEST: Date: 08/09/2019 COMPARISON: 08/04/2019. HISTORY: Re-evaluate pneumonia. FINDINGS: There is focal opacity within the medial left lung base, not significantly changed when compared to t he prior exam. There is slight blunting of the costophrenic angles which may signify small bilateral pleural effusions. Stable prominence of the cardiac silhouette. Prominent degenerative change of the left glenohumeral joint noted, stable. IMPRESSION: Focal opacity in the medial left lung base, stable. Question small bilateral pleural effusions. Follo w-up PA and lateral imaging of the chest following treatment advised to document resolution. POS: [facility]
[2019-08-09] MEDS ORDERED: Fluconazole 100 MG TAB PO SCH (14:15)
[2019-08-09 16:43] VITALS: BP 127/80; TEMP 98.5
--- NOTE | 2019-08-09 20:54 | DIS ---
DATE OF ADMISSION: 08/04/2019 DATE OF DISCHARGE: 08/09/2019 RESIDENT: Sveta Renee DO ADMITTING ATTENDING: Yuri Currie MD DISCHARGE ATTENDING: Alphonse Romero MD CONSULTS: 1. Gastroenterology, Dr. Vaughn Belle. 2. Dietary. 3. Case Management. PROCEDURES: 1. EGD on August 08, 2019, by Dr. Belle: LA grade C reflux mediated erosive esophagitis. 3 cm hiatal hernia, most likely contributing to his esophagitis. No etiology for the patient's recent hematemesis or hemoptysis was seen during this examination. Biopsy was taken in the distal esophagus which resulted on August 09, 2019, positive for fungal hyphae consistent with candidal esophagitis. 2. Chest x-ray on August 09, 2019: Focal opacity in the medial left lung base, stable. Questionable small bilateral pleural effusions. Followup PA and lateral imaging of the chest following treatment advised to document resolution. PRIMARY DIAGNOSIS: Hematemesis secondary to suspected upper GI bleed secondary to esophageal candidiasis. SECONDARY DIAGNOSES: 1. Proctitis. 2. Urinary tract infection secondary to methicillin-resistant Staphylococcus aureus. 3. Community-acquired pneumonia, likely viral. 4. Acute kidney injury on chronic kidney disease, 4. 5. Hyperkalemia, resolved. 6. COVID-19 negative. 7. Dementia. 8. Hydronephrosis with hydroureter, stable. DISCHARGE MEDICATIONS: 1. Doxycycline 100 mg p.o. b.i.d. for three additional days. 2. Fluconazole 200 mg p.o. daily. 3. Protonix 40 mg p.o. daily. 4. MiraLAX 17 g p.o. b.i.d. 5. Senokot one tab p.o. b.i.d. 6. Hydralazine 25 mg p.o. b.i.d. 7. Ativan 1 mg p.o. b.i.d. 8. Calcitrate/vitamin D3 one tablet p.o. daily. 9. Loperamide 2 mg p.o. p.r.n. 10. Cogentin 0.5 mg p.o. b.i.d. 11. Depakote 500 mg p.o. at bedtime. 12. Ferrous sulfate 325 mg p.o. daily. 13. Docusate 100 mg p.o. daily p.r.n. 14. Milk of magnesium 30 mL p.o. q.4 hours p.r.n. 15. Maalox Plus 30 mg p.o. q.4 hour p.r.n. DISCONTINUED MEDICATIONS: Famotidine 20 mg p.o. at bedtime. HISTORY OF PRESENT ILLNESS AND HOSPITAL COURSE: Patient is a 69-year-old male, with past medical history of dementia, GERD, and chronic kidney disease, who was transferred to [facility] from [facility] after an episode of hemoptysis in the [facility]. Patient is a poor historian. History provided by skilled nursing staff and the ER physician. shelter staff states that patient was found in his room with dark red blood on his sheet and he was spitting up clotted blood over the course of about an hour. Vitals were stable at the skilled nursing and he was only complaining of epigastric pain. He has not been having any other symptoms of fever, shortness of breath, nausea, vomiting, diarrhea, dysuria, or chest pain. Nursing staff states that he had an occasional cough at baseline. He has not had any increased cough of late. He denies any cases of COVID at [facility]. Patient has had no known exposures or travel. At the [facility], the patient had a CT of the abdomen, which showed stable right hydronephrosis and hydroureter, esophageal wall thickening, and stool retention in the rectum and colon with fat stranding. CT of the chest showed small pleural effusions with adjacent atelectasis versus infiltrate. Chest x-ray showed a bibasilar linear parenchymal changes suggestive of pneumonia versus pneumonitis. In the [facility], he was given cefepime, Protonix, Zofran, and 1 L of normal saline. COVID test was performed at [facility] ED due to the patient living in a skilled nursing and concern for pneumonia. This later resulted as NEGATIVE. In [facility], he had no episodes of bleeding. The patient was started on Levaquin IV and admitted to inpatient on the medical floor. Upon arrival on the medical floor, the patient was stable from a respiratory standpoint and did not demonstrate any tachypnea or hypoxia. Levaquin was continued for 3 days before being discontinued. A urine culture was initially collected on admission, which resulted on August 05 positive for MRSA. At that point, the patient was started on vancomycin, which was eventually transitioned to oral doxycycline on August 08. GI, Dr. Belle, was consulted on August 05, 2019. He planned for the patient to have an EGD once his COVID resulted as negative. His COVID test resulted negative on August 06 and thus an EGD was planned for August 07. Additionally, Dr. Blele suggested that the patient have had inflammatory changes in the distal colon concerning for stercoral proctitis. He suggested placing the patient on an adequate bowel regimen including MiraLAX twice daily to facilitate multiple bowel movements. Patient had EGD performed on August 08, 2019, which did not reveal an obvious source for his hematemesis or hemoptysis. However, biopsies taken in the distal esophagus were positive for fungal hyphae suggestive of candidal esophagitis. At this point, Dr. Belle recommended a full 21-day course of oral fluconazole for treatment of this. Patient's hemoglobin and hematocrit were stable throughout his stay. On the morning of August 09, 2019, the patient was deemed stable for discharge back to an [facility]. Doctor to doctor discussion was had with Dr. Christopher, who accepts the patient. DISPOSITION: Stable. DISCHARGE INSTRUCTIONS: 1. Location: [facility]. 2. Diet: Regular. 3. Activity: As tolerated pending PT and OT eval at skilled nursing. 4. Follow up with PCP, Dr. Christopher, at skilled nursing facility in 3 to 5 days. Job ID: [id number] MTDD
--- NOTE | 2019-08-10 03:40 | PQF ---
CHARY KEANE MARK *shahriar [id number] CLINICAL DOCUMENTATION CLARIFICATION FORM: POST DISCHARGE Addendum to original discharge summary date: ____ Late entry note date: __ Date: 08/10/19 ATTN: Alphonse Romero Please exercise your independent, professional judgment in responding to the clarification form. Clinical indicators are provided on the bottom of this form for your review Can you please further clarify the diagnosis of the patient? Please check appropriate box(s): [ x] Protein Calorie Malnutrition: [ ] Mild [x ] Moderate [ ] Severe [ ] Other Malnutrition (please specify) __ [ ] Underweight without malnutrition [ ] Cachexia [ ] Other diagnosis please specify [ ] Unable to determine In addition, please specify: Present on Admission (POA): [ x ] Yes [ ] No [ ] Unable to determine CLINICAL INDICATORS - SIGNS / SYMPTOMS / LABS Food & Nutritional service assessment 08/04 pg.1- BMI 14.1 Food & Nutritional service assessment 08/04 pg.1- cachexia Food & Nutritional service assessment 08/04 pg.1- Weight 10.823kg Food & Nutritional service assessment 08/04 pg.1- PPN would be adequate to meet 23% of estimated kcal needs and 100% of estimated protein needs RISK FACTORS Anemia- H and P pg.2 Dementia- H and P pg.2 Schizoaffective disorder- H and P pg.2 Pneumonia- H and P pg.5 Candidal esophagitis- DS pg.1 Proctitis- DS pg.1 JONO on CKD4- DS pg.1 TREATMENT: GI Consult- DR. Belle EGD with biopsy- OP report 08/07 pg.1 IV Fluids- MAR Caltrate 600- 1 tab- MAR Ferrous sulfate 325mg PO- MAR I and O monitoring Moderate Malnutrition (in acute illness) Energy Intake: <75% of estimated energy requirement for > 7 days Weight Loss: 1-2%/1 week; 5%/ 1 month; 7.5%/3 months Other: mild body fat loss; mild muscle mass loss; mild fluid accumulation; Severe Malnutrition (in acute illness) Energy Intake: < 50% of estimated energy requirement for > 5 days Weight Loss: >1-2%/1 week; >5%/1 month; >7.5%/3 months Other: moderate body fat loss; moderate muscle mass loss; moderate- severe fluid accumulation; measurably reduced rn pediatric strength Moderate Malnutrition (in chronic illness) Energy Intake: <75% of estimated energy requirement for >1 month Weight Loss: 5%/1 month; 7.5%/3 months; 10%/6 months; 20%/1 year Other: mild body fat loss; mild muscle mass loss; mild fluid accumulation Severe Malnutrition (in chronic illness) Energy Intake: <75% of estimated energy requirement for >1 month Weight Loss: >5%/1 month; >7.5%/3 months; >10%/6 months; >20%/1 year Other: severe body fat loss; severe muscle mass loss; severe fluid accumulation ; measurably reduced rn pediatric strength (This form is maintained as a part of the permanent medical record) 2014 [employer]. All Rights Reserved [email or web address]
--- NOTE | 2019-08-10 08:29 | PQF ---
[employer] Win[employer] Viewer LAKHWINDERCHARYANAM [id number] [facility] [id number] CLINICAL DOCUMENTATION CLARIFICATION FORM: POST DISCHARGE Addendum to original discharge summary date: ____ Late entry note date: __ DATE: 08/10/19 ATTN: Anam Romero Please exercise your independent, professional judgment in responding to the clarification form. Clinical indicators are provided on the bottom of this form for your review Can you please further clarify the etiology of Uppper GI bleeding? Please check appropriate box(s): [ ] Erosive Esophagitis [ x ] Candidal esophagitis [ ] Stercoral colitis [ ] GI bleeding of unknown etiology [ ] Other diagnosis please specify [ ] Unable to determine In addition, please specify: Present on Admission (POA): [ x ] Yes [ ] No [ ] Unable to determine For continuity of documentation, please document condition throughout progress notes and discharge summary. Thank You. CLINICAL INDICATORS - SIGNS / SYMPTOMS / LABS H and P pg.4- CT abdomen showed esophageal wal;l thickening ans stool retention Consult pg.1- Dr. Belle- the patient was directly observed as having with a coffee ground emesis Family Med PN pg.2- Hematemesis2/2 UGIB OP report 08/07 pg.3- LA grade C reflux-mediated erosive esophagitis OP report 08/07 pg.3-No etiology for the patient's recent hematemesis DS pg.1- hematemesis 2/2 suspected upper GI bleed now resolved DS pg.3- distal esophagus were suggestive of candidal esophagitis RISK FACTORS Stercoral colitis- Family med PN pg.2 Erosive Esophagitis- DS pg.1 Candidal esophagitis- DS pg.1 TREATMENTS: GI Consult Dr. Belle 08/04 V Fluids- MAR OP report pg.1- EGD with biopsy Blood transfusion- Blood bank Levofloxacin 750mg IV- MAR Pantoprazole Sodium 40mg IV- MAR Oral fluconazole- DS pg.3 (This form is maintained as a part of the permanent medical record) 2014 [employer]. All Rights Reserved [email or web address]
[2019-08-10] MEDS ORDERED: Fluconazole 100 MG TAB PO SCH (09:00)
== END 2019-08-09 18:55 | DRG 368 ==
LOC: ERS 16:18 → T4-A 18:36
PROVIDERS: ADMIT Emergency Medicine; ATTEND Emergency Medicine
PROC: 0DB38ZX Excision of Lower Esophagus, Via Natural or Artificial Opening Endoscopic, Diagnostic (ICD-10-PCS; principal; 2019-08-08)
DX: B37.81 Candidal esophagitis (principal); J12.9 Viral pneumonia, unspecified; K92.0 Hematemesis; N17.9 Acute kidney failure, unspecified; N18.4 Chronic kidney disease, stage 4 (severe); N13.6 Pyonephrosis; R64 Cachexia; Z68.1 Body mass index [BMI] 19.9 or less, adult; E44.0 Moderate protein-calorie malnutrition; K44.9 Diaphragmatic hernia without obstruction or gangrene; Z66 Do not resuscitate; Z20.828 Contact with and (suspected) exposure to other viral communicable diseases; K62.89 Other specified diseases of anus and rectum; B95.62 Methicillin resistant Staphylococcus aureus infection as the cause of diseases classified elsewhere; F03.90 Unspecified dementia, unspecified severity, without behavioral disturbance, psychotic disturbance, mood disturbance, and anxiety; E87.5 Hyperkalemia; K21.0 Gastro-esophageal reflux disease with esophagitis; D63.1 Anemia in chronic kidney disease; E87.6 Hypokalemia; F20.9 Schizophrenia, unspecified; F42.9 Obsessive-compulsive disorder, unspecified; Z88.8 Allergy status to other drugs, medicaments and biological substances; Z88.6 Allergy status to analgesic agent; Z79.899 Other long term (current) drug therapy
CPT/HCPCS: 36415; 71045; 80048; 80202; 82274; 82570; 84145; 84300; 85025; 87077; 87086; 87186; 87449; 87899; 88305; 88312; 88313; 96365; C9113; J0692; J1956; J2001; J2405; J2704; J3370; J3490